=== PATIENT | female | born 1990 | race Caucasian/White ===

== ENCOUNTER → 2023-05-07 08:20 | Outpatient (REF) | payer OTHER, SELFPAY | LOC: HWRAD 08:20 | PROVIDERS: ATTENDING PHYSICIAN Obstetrics & Gynecology; FAMILY PHYSICIAN Nurse Practitioner Adult Health | DX: Z31.430 Encounter of female for testing for genetic disease carrier status for procreative management (principal) | CPT/HCPCS: 76801 ==